=== PATIENT | female | born 1990 | race Caucasian/White ===

== ENCOUNTER 2021-02-24 10:02 | Emergency (ER) | payer OTHER, SELFPAY ==
[2021-02-24 10:26] VITALS: BP 105/69; PULSE 104; RESP 20; TEMP 36.8; O2SAT 97
--- NOTE | 2021-02-24 10:26 | ED.GENADULT ---
HPI - General Adult General Chief complaint: Urogenital-Female Stated complaint: low back pain, dysuria post kidney stent 2 days ag Time Seen by Provider: 02/24/21 10:26 History of Present Illness HPI narrative: 30-year-old female patient is here with complaints of pain in the left lower back, in kidney area for several days. The patient states that she was diagnosed with renal calculi and approximately a month ago and underwent a surgical insertion of ureteric stent in the left ureter 3 days ago. Patient states that she has continuous pain since then. Patient states that the pain is localized to the left kidney area and does not radiate into the pelvis. She has experienced some burning sensation with urination. She states that she has taken tramadol 1 tablet every 6 hours without any relief. She has also tried Flexeril which she has a prescription for from prior back pain. She denies any fever or chills. She denies any nausea or vomiting. Patient states that she has a history of stage I renal disease and is under care of a [facility]. Patient denies any history of diabetes or hypertension. She denies any allergies or any known routine medications. COVID screen is negative. Related Data Home Medications Medication Instructions Recorded Confirmed cyclobenzaprine 10 mg PO Q6-8H 02/24/21 02/24/21 tramadol 50 mg PO Q6-8H 02/24/21 02/24/21 Allergies Allergy/AdvReac Type Severity Reaction Status Date / Time No Known Allergies Allergy Verified 02/24/21 10:23 Review of Systems Review of Systems: All systems reviewed & are unremarkable except as noted in HPI and below Constitutional: Constitutional: Reports no additional constitutional complaints, Denies chills and Denies fever(s) Eyes: Eyes: Reports no additional eye complaints ENT: Reports system reviewed and no additional complaints, except as documented Cardiovascular: Cardiovascular: Reports no additional cardiovascular complaints Respiratory: Respiratory: Reports no additional respiratory complaints Gastrointestinal: Gastrointestinal: Reports no additional gastrointestinal complaints Genitourinary: Genitourinary: Reports no additional female genitourinary complaints Integumentary/Breasts: Skin/Breast: Reports system reviewed and no additional complaints, except as docu Neurologic: Reports system reviewed and no additional complaints, except as documented Psychiatric: Psychiatric: Reports no additional psychiatric complaints Endocrine: Endocrine: Reports no additional endocrine complaints Hematologic/Lymphatic: Hematologic/Lymphatic: Reports no additional hematologic/lymphatic complaints Allergic/Immunologic: Allergic/Immunologic: Reports no additional allergic/immunologic complaints [facility] Past Medical History Medical History (Updated 02/24/21 @ 11:28 by Sobia Juarez MD) Kidney stone on left side Pain since placement of Stent 3 days ago Renal disease Exam Const: General: healthy appearing and alert Orientation/consciousness: patient oriented x3 Other: Patient appears in moderate distress from pain HENMT: Head: normal to inspection Eyes: Conjunctivae: conjunctivae normal Pupils: Equal, round and reactive pupils present EOM: EOMs intact bilaterally Neck: Neck: normal visual inspection and no lymphadenopathy Chest: Chest palpation & inspection: normal inspection of the chest Resp: Effort & Inspection: normal respiratory effort Auscultation: clear to auscultation bilaterally Cardio: Rate: regular rate Rhythm: regular rhythm GI: GI Palp: Yes Soft to palpation and Yes Tenderness to palpation present (GI) (Left mid abdomen ) : General: Yes CVA tenderness on the left Back/Spine/Pelvis: Back: CVA tenderness Other: Left Skin: General skin exam: normal color Rashes: no rashes Neuro: General: patient oriented x3, moves all extremities and no focal motor deficits Speech: normal speech Gait exam (Nadiya
[2021-02-24] MEDS: MORPHINE SULFATE (*CRX) 4 MG/ML INJ IM (10:45)
[2021-02-24] MEDS: ONDANSETRON HCL ODT 4 MG TABLET PO (10:45)
--- NOTE | 2021-02-24 10:48 | PCDIET ---
UA walked to lab.
[2021-02-24 10:53] LABS: Add Urine Microscopic? YES; Appearance Urine Clear (Clear); Bilirubin Urine Negative (Negative); Blood Urine 3+ (Negative); Color Urine Light Yellow (Yellow); Glucose Urine UA Negative (Negative); Ketones Urine Negative (Negative); Leukocyte Esterase Ur 1+ (Negative); Nitrate Urine Negative (Negative); Protein Urine 2+ (Negative); Specific Grav Ur 1.025 (1.010-1.020); Urobilinogen Urine 0.2 mg/dL (0.2-1.0)
[2021-02-24 11:00] LABS: Bacteria Urine 1+ /hpf; RBC Urine >75 /hpf (0-2); Squamous Epithelial Cell Urine Few /hpf (Few)
[2021-02-24 11:16] VITALS: BP 108/74; PULSE 97; RESP 20; O2SAT 100
--- NOTE | 2021-02-24 11:17 | PC.NURSE ---
Pt reports no relief from pain yet. Will check back shortly to see if there is any improvement. Family at bedside. No questions or concerns at this time.
== END 2021-02-24 11:45 | disposition home or self-care (01) ==
PROVIDERS: Emergency Provider Emergency Medicine; PCP Family Medicine
DX: Z87.442 Personal history of urinary calculi (principal)
CPT/HCPCS: 81001; 96372; 99283; A9270; J2270